=== PATIENT | male | born 1990 | race Caucasian/White ===

== ENCOUNTER → 2021-01-10 11:14 | Outpatient (CLI) | payer OTHER, SELFPAY ==
--- NOTE | 2021-01-10 | DI.RAD.S_ITS ---
PROCEDURE: FL UPPER GI SERIES INDICATIONS: Gastric ulcer, unspecified as acute or chronic COMPARISON: None. FINDINGS: KUB: Preprocedural adaptive physical educator film demonstrates a normal bowel gas pattern. No suspicious abdominal calcifications. Visualized solid organ contours appear normal. Bony structures appear unremarkable. Esophagus: Esophageal mucosa is normal on air-contrast views. On single-contrast views, there is normal esophageal peristalsis. No strictures, extrinsic mass effects, or diverticula. No hiatal hernia or elicited gastroesophageal reflux. There is normal transit of a calibrated barium tablet through the esophagus. Stomach: The stomach is normally distensible, with normal rugal fold thickness. No mucosal masses or ulcers. Pylorus and duodenal bulb appear normal in morphology. Duodenal folds are normal in thickness as well. IMPRESSION: Unremarkable upper GI examination. Dictated by: Noble Sheikh M.D. on 01/10/2021 at 13:35 Approved by: Noble Sheikh M.D. on 01/10/2021 at 13:35
== END ==
PROVIDERS: Referring Provider Orthopaedic Surgery; Visit Provider Orthopaedic Surgery
DX: K25.9 Gastric ulcer, unspecified as acute or chronic, without hemorrhage or perforation (principal)
CPT/HCPCS: 74240

== ENCOUNTER → 2021-08-23 08:49 | Outpatient (CLI) | payer OTHER, SELFPAY ==
--- NOTE | 2021-08-23 08:50 | DI.MRI.S_ITS ---
PROCEDURE: MR TMJ WO CON INDICATIONS: JAW PAIN TECHNIQUE: Axial T1 spin echo, coronal and sagittal PD fast spin echo through the temporomandibular joints, in both the closed- and open-mouth positions. COMPARISON: None. FINDINGS: Image quality: Excellent. Right: Joint is normally aligned on closed and open-mouth positioning. Articular disk demonstrates normal location and morphology. No bony erosions or osteophytes. Left: Joint is normally aligned on closed and open-mouth positioning. Articular disk demonstrates normal location and morphology. No bony erosions or osteophytes. IMPRESSION: No significant MRI abnormality is seen. Dictated by: Shine Galaviz M.D. on 08/23/2021 at 10:21 Approved by: Shine Galaviz M.D. on 08/23/2021 at 10:22
== END ==
PROVIDERS: PCP Dentist Oral and Maxillofacial Surgery; Referring Provider Dentist Oral and Maxillofacial Surgery; Visit Provider Dentist Oral and Maxillofacial Surgery
DX: R68.84 Jaw pain (principal)
CPT/HCPCS: 70336